=== PATIENT | female | born 1980 | race Caucasian/White ===

== ENCOUNTER 2024-02-02 11:37 | Emergency (ER) | payer OTHER ==
[~2024-02-02] VITALS: Ht 167.6 cm; Wt 83.0 kg
[2024-02-02] MEDS ORDERED: PROGESTERONE200 MG PO (11:54)
[2024-02-02] MEDS ORDERED: CRINONE1.125 G1 (11:54)
[2024-02-02] MEDS ORDERED: PRENATAL + DHA1 EAC1 PO (11:55)
[2024-02-02] MEDS ORDERED: OMEGA 3 1,0001 EACH PO (11:55)
[2024-02-02 12:08] LABS: BASOPHILS 0.4 % (0-2); EOSINOPHILS 2.1 % (0-6); HEMATOCRIT 34.9 % (35.0-50.0); LYMPHOCYTES 14.5 % (24-44); MCH 26.9 (27-36); MCHC 34.3 g/dl (30-36); MCV 78.4 fl (81-99); MONOCYTES 12.8 % (0-12); NEUTROPHILS 70.2 % (39-80); PLATELET COUNT 311 K/uL (140-440); RBC 4.46 M/ul (4.3-5.7); RDW 16.6 (10.5-15.0)
[2024-02-02] MEDS ORDERED: SODIUM CHLORIDE 0.9% 1,000 ML IV PRN (12:15)
[2024-02-02 12:23] LABS: ABO A; RH POSITIVE
[2024-02-02 12:46] LABS: ALBUMIN/GLOBULIN RATIO 0.71 (1.1-2.4); ANION GAP 16.1 (7-21); BILIRUBIN, TOTAL 0.4 ng/dL (0.2-1.0); BUN/CREATININE RATIO 15.38 (6.0-28.6); CALCIUM 9.6 mg/dL (8.5-10.1); CREATININE, SERUM 0.78 mg/dL (0.55-1.02); POTASSIUM 4.1 mmol/L (3.5-5.1); PROTEIN, TOTAL 7.2 g/dL (6.4-8.2)
--- OUTSIDE RECORDS SUMMARY | 2024-02-02 13:42 | XMS ---
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 Franki has no Care Guidelines for this patient. Ronald VISIT COUNT (12 MO.) [address] [facility] NOTE: Visits indicate total known visits. ED/C VISIT TRACKING (12 MO.) [facility] COMPLAINT: - VAGINAL BLEEDING [facility]24 18:02 [facility] DIAGNOSES: - Hemorrhage in early , unspecified - Leiomyoma of uterus, unspecified - Maternal care for benign tumor of corpus uteri, first trimester - VAGINAL BLEEDING 12/21/2023 23:45 [facility] [place] [place] TYPE: Emergency DIAGNOSES: - Threatened - Vaginal Bleeding 10/23/2023 17:53 [facility] [place] TYPE: Emergency DIAGNOSES: - Displaced fracture of proximal phalanx of right lesser toe(s), initial encounter for closed fracture - LEG INJURY INPATIENT VISIT TRACKING (12 MO.) No inpatient visits to display in this time frame [email or web address]
[2024-02-02 14:08] LABS: BILIRUBIN, URINE NEGATIVE (negative); BLOOD/HGB, URINE LARGE (Negative); KETONE, URINE SMALL (Negative); LEUK ESTERASE, URINE NEGATIVE (negative); NITRITE, URINE NEGATIVE (negative)
[2024-02-02 14:13] LABS: EPITHELIAL CELLS, URINE SQUAMOUS 3+ /lpf (0-1+)
[2024-02-02 14:14] LABS: BACTERIA, URINE 1+ /hpf (negative); CASTS, URINE NONE SEEN \\lpf; COLLECTION TYPE, URINE CLEAN CATCH; CRYSTALS, URINE NONE SEEN (0-1+); REFLEX CULTURE, URINE No (No); WHITE BLOOD CELLS, URINE 0-1 /HPF (0-5)
[2024-02-02 14:25] VITALS: BP 135/81
== END 2024-02-02 14:25 | disposition home or self-care (01) ==
LOC: ED 11:37
PROVIDERS: Emergency Medicine
DX: O46.91 Antepartum hemorrhage, unspecified, first trimester (principal); O09.521 Supervision of elderly multigravida, first trimester; Z3A.12 12 weeks gestation of pregnancy; Z88.5 Allergy status to narcotic agent; Z91.048 Other nonmedicinal substance allergy status; Z88.8 Allergy status to other drugs, medicaments and biological substances; Z79.899 Other long term (current) drug therapy
CPT/HCPCS: 36415; 76801; 76817; 80053; 81001; 84702; 85025; 86900; 86901; 99284